=== PATIENT | female | born 1980 | race Two or more races ===

== ENCOUNTER 2016-09-19 04:42 | Inpatient (IN) | payer BC ==
[2016-09-19 05:04] VITALS: BMI 41.5
[2016-09-19] MEDS ORDERED: OXYTOCIN 1,000 ML IV ONE ×2 (05:17→08:07)
[2016-09-19] MEDS ORDERED: LIDOCAINE 1% 30 ML VIAL (PRESERVATIVE FREE) ONE (05:18)
[2016-09-19] MEDS ORDERED: LR 500 ML IV PRN (05:35)
--- NOTE | 2016-09-19 05:42 | HISTPHYS ---
- HISTORY OF PRESENT ILLNESS Age: 35 Estimated Due Date: 09/20/16 Gestational Age: 39 : 3 Para: 2 Patient Presents to:: Labor & Delivery Presents for:: Contractions Details: Pt has been receiving care at the [facility]. care appears to be fairly routine with the exception of size greater than dates at the end of . Pt states she had u/[place] at [place] on 09/16 and was 8 lbs 6 oz. Current : GBS - - REVIEW OF SYSTEMS Reports/Denies: Reports: Contractions, Movement. Denies: Vaginal Bleeding , Leaking Fluid Pain: Reports: Abdominal - ALLERGIES Allergies Allergy/AdvReac Type Severity Reaction Status Date / Time No Known Allergies Allergy Unverified 09/19/16 04:55 - CURRENT MEDICATIONS Home Medication List Vits W-Ca,Fe,FA(<1Mg) [] 1 tab PO DAILY 09/19/16 [History] - PAST MEDICAL HISTORY Reports: No Significant History - PAST SURGICAL HISTORY Reports: None - SOCIAL HISTORY Smoking Status: Never smoker - GENITOURINARY HISTORY Gynecologic History: Reports: None HX : 3 Para: 2 Live Deliveries (# of pregnancies resulting in a live ): 2 1 Sex: Male Weight: 6 7 Weeks Gestation: 40 2 Sex: Male Weight: 7 7 Weeks Gestation: 40 - PHYSICAL EXAM Vital Signs:: Temperature: 97.3 F (09/19/16 04:42) HR: 85 (09/19/16 04:42) RR: 18 (09/19/16 04:42) BP: 144/78 (09/19/16 04:42) Pulse Ox: () GENERAL: Alert, Oriented, No Acute Distress ABDOMEN: Gravid, Non-Distended, Non-Tender, Obese, Soft Fundal Height (cm): 41 GENITOURINARY: Normal. negative: Lesions, Rash MUSCULOSKELETAL: Normal EXTERMITIES: Moves All Extremeties DINESH'S SIGN: negative: Bilateral Dilation (cm): 9 Effacement (%): 90 Station: -2 Heart Rate: 130's Reactive Contractions: Regular (q 2 min) Membranes: AROM Amniotic Fluid: Clear - ASSESSMENT (ACTIVE PROBLEMS) (1) 39 weeks gestation of Acute Z3A.39 - 39 WEEKS GESTATION OF (2) Uterine contractions Acute [id number] - - PLAN Continue Present Management, Amniotomy (already done) Other Plan: labs are pending
[2016-09-19 05:50] LABS: AUTOMATED BASOPHIL 0.4 % (0-2); AUTOMATED EOSINOPHIL 0.7 % (0-5); AUTOMATED LYMPH 17.1 % (17-44); AUTOMATED NEUTROPHIL 75.8 % (45-76); MPV 7.9 fL (7.4-10.4)
[2016-09-19] MEDS ORDERED: Vaccine Screening Complete SCH ×2 (06:00→09:00)
[2016-09-19] MEDS ORDERED: LR 1,000 ML IV SCH ×2 (06:00→15:05)
[2016-09-19] MEDS ORDERED: METHYLERGONOVINE 0.2 MG/ML AMPULE ONE (07:54)
[2016-09-19] MEDS ORDERED: METHYLERGONOVINE 0.2 MG/ML AMPULE IM ONE (07:55)
[2016-09-19] MEDS ORDERED: HYDROCORTISONE 25 MG SUPP PR PRN (08:07)
[2016-09-19] MEDS ORDERED: SODIUM CHLORIDE 0.9% 3 ML FLUSH FLUSH PRN (08:07)
[2016-09-19] MEDS ORDERED: LANOLIN OINTMENT 0.25 OZ TUBE TOP PRN (08:07)
[2016-09-19] MEDS ORDERED: OXYCODONE HCL 5 MG TABLET PO PRN (08:07)
[2016-09-19] MEDS ORDERED: ACETAMINOPHEN 325 MG/TAB TABLET PO PRN (08:07)
[2016-09-19] MEDS ORDERED: BISACODYL 10 MG SUPP PR PRN (08:07)
[2016-09-19] MEDS ORDERED: DIBUCAINE OINTMENT 1 OZ TUBE TOP PRN (08:07)
--- NOTE | 2016-09-19 08:09 | OBDELNOTE ---
Delivery Note - Problem/Diagnosis (1) Vaginal delivery Status: Acute (2) 39 weeks gestation of Status: Acute - Admitting Diagnosis Reason for Visit: Contractions Admission Date: 09/19/16 Admission time: 04:57 Gestational Age: 39 - Procedures Procedure(s): None Labor Anesthesia/Analgesia: None Date: 09/19/16 Time: 07:50 Spontaneous Vaginal Delivery Presentation: Vertex Episiotomy: None Laceration: 2nd Degree Perineal Repair Agent: 3-0 Chromic EBL: 700 Fluid: Clear Placenta: Spontaneous Description: Normal - Procedures Procedures: None - Infant Data Order: [place] Infant Sex: Female Weight: 3.997 kg (1min): 9 (5min): 9 Feeding Plans for : Breast Plans Circumcision: Yes Complications: No Complications [place] to:: LDRP/Mother's Room - /Operative Complications /Op Complications: None Discharge Planning - REASON FOR ADMISSION Patient Presents to:: Labor & Delivery Reason for Visit: Contractions - DISCHARGE INSTRUCTIONS Prescriptions: Hydrocodone Bit/Acetaminophen [Lortab 5/325] 1 - 2 tab PO Q4H PRN #30 tab PRN Reason: Pain Ibuprofen Tablet [Motrin] 800 mg PO Q6-8H PRN #30 tab PRN Reason: Pain
--- NOTE | 2016-09-19 08:12 | PCM.DCS92 ---
- Primary/Secondary Discharge Diagnoses (1) Vaginal delivery Acute O80 - ENCOUNTER FOR FULL-TERM UNCOMPLICATED DELIVERY Present on Admission: No (2) 39 weeks gestation of Acute Z3A.39 - 39 WEEKS GESTATION OF Present on Admission: Yes - HOSPITAL COURSE /Op Complications: None - DISCHARGE INSTRUCTIONS Discharge Disposition: Home Discharge Condition: Good Cognitive Discharge Status: Unimpaired Fuctional Discharge Status: Independent Patient Leaving with Prescriptions?: Yes Prescriptions: Hydrocodone Bit/Acetaminophen [Lortab 5/325] 1 - 2 tab PO Q4H PRN #30 tab PRN Reason: Pain Ibuprofen Tablet [Motrin] 800 mg PO Q6-8H PRN #30 tab PRN Reason: Pain - Diet Diet at Discharge: Regular - Activity Activity: No Heavy Lifting, Pelvic Rest, No Driving No Driving for: While using pain medications - Instructions Call Physician for: Severe Abdominal Cramps, Foul Smelling Discharge, Pain/ Redness in Calf/Leg, Soaking Pad in 1 hr, Increased Pain at Wound, Temperature Above 100.4, Drainiage from Wound - Incision Incision, Lacerations, or Tears: Yes - DC Summary Notes Discharge Medications: *See "Discharge Medication List" for a complete list of Home Medications and Discharge Medications.* Obstetric Hospital Course - Admitting Diagnosis Reason for Visit: Contractions Admission Date: 09/19/16 Admission time: 04:57 Gestational Age: 39 - Procedures Procedure(s): None Labor Anesthesia/Analgesia: None Date: 09/19/16 Time: 07:50 Spontaneous Vaginal Delivery Presentation: Vertex Episiotomy: None Laceration: 2nd Degree Perineal Repair Agent: 3-0 Chromic EBL: 700 Fluid: Clear Placenta: Spontaneous Description: Normal - Procedures Procedures: None - Data Order: [place] Sex: Female Weight: 3.997 kg (1min): 9 (5min): 9 Feeding Plans for Infant: Breast Plans Circumcision: Yes [place] Complications: No Complications to:: LDRP/Mother's Room - /Operative Complications /Op Complications: None
[2016-09-19] MEDS ORDERED: Pharmacy Order Set Alert SCH (09:00)
[2016-09-19] MEDS: IBUPROFEN 800 MG TAB PO SCH ×2 (11:23→17:47)
[2016-09-19] MEDS ORDERED: SODIUM CHLORIDE 0.9% 3 ML FLUSH FLUSH SCH (18:00)
[2016-09-20] MEDS: IBUPROFEN 800 MG TAB PO SCH ×2 (00:33→02:04)
[2016-09-20 05:33] VITALS: BP 91/54; PULSE 81; TEMP 97.5
--- NOTE | 2016-09-20 08:24 | OBGYNPROG ---
- Subjective Post Day: 1 Reports: Ambulating, Tolerating Regular Diet, Voiding Freely, Moderate Lochia. Denies: Complaints, Heavy Bleeding Pain: Reports: Well Managed - Objective Vital Signs: Temperature: 97.5 F (09/20/16 05:32) HR: 81 (09/20/16 05:32) RR: 18 (09/20/16 05:32) BP: 91/54 (09/20/16 05:32) Pulse Ox: () General: Alert, Oriented, No Acute Distress ABDOMEN: Non-Distended, Non-Tender, Soft Fundus: At Umbilicus, Firm. Denies: Tender Lochia: Moderate EXTERMITIES: Moves All Extremeties. Denies: Pain/Tenderness OBGYN Progress Note - ASSESSMENT (1) Vaginal delivery Status: Acute Code(s): O80 - ENCOUNTER FOR FULL-TERM UNCOMPLICATED DELIVERY Comment: Doing well (2) 39 weeks gestation of Status: Acute Code(s): Z3A.39 - 39 WEEKS GESTATION OF - PLAN Routine Care
== END 2016-09-20 13:30 | disposition home or self-care (01) | DRG 775 ==
LOC: LD 04:42 → MASU 05:08
PROVIDERS: ADMIT Obstetrics & Gynecology; ATTEND Obstetrics & Gynecology
PROC: 10E0XZZ Delivery of Products of Conception, External Approach (ICD-10-PCS; principal; 2016-09-19)
PROC: 0KQM0ZZ Repair Perineum Muscle, Open Approach (ICD-10-PCS; 2016-09-19)
PROC: 10907ZC Drainage of Amniotic Fluid, Therapeutic from Products of Conception, Via Natural or Artificial Opening (ICD-10-PCS; 2016-09-19)
DX: O70.1 Second degree perineal laceration during delivery (principal); Z37.0 Single live birth; Z3A.39 39 weeks gestation of pregnancy
CPT/HCPCS: 59400; 81002; 85014; 85018; 85025; 86592; 86850; 86900; 86901; 96361; 96365; 96366; 96372; J2001; J2210; J2590; J3490